=== PATIENT | male | born 1965 | race Caucasian/White ===

== ENCOUNTER 2018-10-16 11:07 | Emergency (ER) | payer BC, OTHER ==
[2018-10-16] MEDS ORDERED: LIDOCAINE 1% 10 ML VIAL INJ ONE (12:29)
[2018-10-16] MEDS ORDERED: CHLORHEXIDINE GLUCONATE 4 % 15 ML UD TOP ONE (12:29)
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
[2018-10-16 14:23] VITALS: BP 138/78; TEMP 98; O2SAT 97
== END 2018-10-16 13:59 | disposition home or self-care (01) ==
LOC: ER 11:07
DX: S61.210A Laceration without foreign body of right index finger without damage to nail, initial encounter (principal); W45.8XXA Other foreign body or object entering through skin, initial encounter; Z88.5 Allergy status to narcotic agent; Y99.0 Civilian activity done for income or pay; Y92.69 Other specified industrial and construction area as the place of occurrence of the external cause